=== PATIENT | male | born 1995 ===

== ENCOUNTER → 2022-03-08 | Day surgery (SDC) | payer OTHER ==
[~2022-03-08] VITALS: Ht 182.9 cm; Wt 142.9 kg
[~2022-03-08] MED LIST: DEPO-TESTO100 MG/1 M SC; FEOSOL325 MG PO; FLONASE ALLER15.8 ML; FOLIC ACID1 MG PO; LOVAZA1 GM PO; TUMERIC PO; VITAMIN D350 MC3 PO
[2022-03-08 08:24] LABS: HCT 46.8 % (42.0-52.0); HGB 15.9 g/dl (13.2-18.0); MCH 28.4 pg (25.0-31.0); MCV 83.7 fL (78.0-100.0); MPV 8.8 fL (6.0-9.5); RBC 5.59 M/uL (4.70-6.00); RDW 12.4 % (11.5-14.0); WBC 10.2 K/uL (4.0-10.5)
[2022-03-08 08:44] LABS: ALBUMIN 3.8 g/dL (3.4-5.0); BILIRUBIN - TOTAL 1.3 mg/dL (0.2-1.0); BUN/CREAT RATIO (CALC) 9.7 RATIO; CREATININE 0.93 mg/dL (0.67-1.17); GLOBULIN (CALCULATION) 4.4 g/dL; POTASSIUM 3.9 mmol/L (3.5-5.1); TOTAL PROTEIN 8.2 g/dL (6.4-8.2)
== END | disposition home or self-care (01) ==
LOC: FAS 07:58
PROVIDERS: Surgery
DX: K29.70 Gastritis, unspecified, without bleeding (principal); K31.9 Disease of stomach and duodenum, unspecified; K21.00 Gastro-esophageal reflux disease with esophagitis, without bleeding; E61.1 Iron deficiency; Z80.0 Family history of malignant neoplasm of digestive organs
CPT/HCPCS: 36415; 80053; J2704; J7120